=== PATIENT | male | born 1995 | race Hispanic/Latino ===

== ENCOUNTER 2025-06-11 12:17 | Emergency (ER) | payer OTHER ==
[~2025-06-11] VITALS: Ht 177.8 cm; Wt 120.2 kg
[~2025-06-11 12:17] MED LIST: AMOX-429 PO; LEVO500T2 PO; PRED5TAB PO
--- NOTE | 2025-06-11 12:27 | ERN ---
ED Note History of Present Illness Stated Complaint: RT LEG PAIN Chief Complaint: Lower Extremity Pain/Injury Time Seen by MD: 12:18 Dictation: PATIENT IS A 29-YEAR-OLD MALE HERE WITH HIS MOTHER WITH COMPLAINTS OF RIGHT LEG PAIN HE HAS HAD FOR THE LAST SEVEN MONTHS WORSE WHEN HE GETS UP IN THE MORNING HAS TO WALK. STATES HE HAS ALREADY BEEN TO HIS PRIMARY CARE DOCTOR, DR. HESS 3 TIMES AND WAS TOLD IT WAS A MUSCLE STRAIN AND TO STRETCH HIS LEG AND WAS GIVEN IBUPROFEN. HE STATES HE RAN OUT OF THE MEDICATIONS OR WHILE BACK IN HIS TAKEN ADVIL [id number]. STATES IT TAKES HIM 2-3 HOURS HER START WALKING IN THE MORNING BECAUSE IT LEG HURTS SO BAD NOW TODAY IT IS COOL TO TOUCH. HE DENIES CLAUDICATION. SAYS HE HAS NOT SEEN HIS PRIMARY CARE DOCTOR SINCE FEBRUARY 2025. DISTAL NEUROVASCULAR CMS INTACT BACK TO BOTH LOWER EXTREMITIES. NO CALF TENDERNESS Allergies: Coded Allergies: No Allergy Information Available (Verified Allergy, Unknown, 06/25/16) Home Meds Active Scripts Ibuprofen (Ibuprofen 800 mg Tab) 800 Mg Tab, 800 MG PO Q8H PRN for fever or pain, #30 TAB 0 Refills Prov:CRISTELA MI LAUNDRY BAG PUNCH OPERATOR 06/11/25 Prednisone (Prednisone) 5 Mg Tablet, 5 MG PO DAILYBKFST, #5 TAB Prov:NAJMA CROSS MD 06/30/16 Amoxicillin/Potassium Clav (Augmentin 875-125 Tablet) 1 Each Tablet, 1 EACH PO BIDMEALS, #15 TAB Prov:NAJMA CROSS MD 06/30/16 Levofloxacin (Levaquin) 500 Mg Tablet, 500 MG PO DAILY, #7 TAB Prov:NAJMA CROSS MD 06/30/16 Past Medical History Past Medical History: Other Additional Past Medical Hx: CHRONIC RLE PAIN Surgical History: None RN Note Reviewed/Agreed w/PFSH: Yes Review of System Dictation CONSTITUTIONAL: NEGATIVE EXCEPT FOR HPI HEAD/FACE: NEGATIVE EXCEPT FOR HPI EENT: NEGATIVE EXCEPT FOR HPI RESPIRATORY: NEGATIVE EXCEPT FOR HPI GASTROINTESTINAL/ABDOMINAL: NEGATIVE EXCEPT FOR HPI GENITOURINARY: NEGATIVE EXCEPT FOR HPI PAIN COOL TO TOUCH SEVEN MONTHS MUSCULOSKELETAL: NEGATIVE EXCEPT FOR HPI RIGHT LEG INTEGUMENTARY: NEGATIVE EXCEPT FOR HPI NEUROLOGICAL/PSYCH: NEGATIVE EXCEPT FOR HPI HEMATOLOGIC/LYMPHATIC: NEGATIVE EXCEPT FOR HPI ALL SYSTEMS NEGATIVE, EXCEPT NOTED ABOVE. 13 POINT REVIEW OF SYSTEMS ASSESSED AND ALL NEGATIVE EXCEPT FOR ABOVE. Initial Vital Sign VS Vital Signs Date Time Temp Pulse Resp B/P (MAP) Pulse Ox O2 Delivery O2 Flow Rate FiO2 06/11/25 12:18 98.2 74 16 141/103 99 Room Air 0 06/11/25 15:52 21 Physical Exam Dictation VITAL SIGNS REVIEWED GENERAL APPEARANCE: ALERT, ORIENTED X 3, NO ACUTE DISTRESS, WELL DEVELOPED, NOURISHED. ANXIOUS/OBESE MOTHER AT BEDSIDE HEAD AND FACE: NON-TRAUMATIC. EYES: PERRL, PINK CONJUNCTIVAS, EYELID NO TRAUMA, ANTERIOR CHAMBER WITH ARCUS SENILIS. EARS: PINNAS INTACT AND NO SIGNS OF TRAUMA OR ERYTHEMA EAR CANALS CLEAR AND NO DISCHARGE TM NO ERYTHEMA NOSE: NO DISCHARGE, NO BLEEDING. OROPHARYNX: MOUTH NORMAL, TONGUE PINK, PHARYNX CLEAR,NO ERYTHEMA, TONSILS NO EXUDATES, NO ABSCESSES NOTED, MUCOUS MEMBRANE MOIST NECK: SUPPLE, NON-TENDER, NO THYROMEGALY, NO MASSES, NO JVD, NO BRUITS BREAST:DEFERRED CHEST:NO TENDERNESS, NO CREPITUS, NO PARADOXICAL MOVEMENT, NO RETRACTIONS LUNGS:CLEAR, WELL-VENTILATED, SYMMETRIC, NO RALES, NO WHEEZING, NO RHONCHI, NO STRIDOR, GOOD BREATH SOUNDS BILATERALLY HEART: REGULAR RATE, REGULAR RHYTHM, NO MURMUR, NO GALLOPS VASCULAR: NO PERIPHERAL EDEMA, ABDOMEN: SOFT, POSITIVE BOWEL SOUNDS, NONDISTENDED, NO GUARDING, NONTENDER, NO REBOUND, NO MASSES NO HEPATOMEGALY, NO SPLENOMEGALY, NO EVANS'S SIGN, NO HERNIAS. RECTAL: DEFERRED GENITAL: DEFERRED NEUROLOGICAL: NORMAL SPEECH, MOTOR FUNCTION INTACT, SENSORY FUNCTION INTACT MUSCULOSKELETAL: NECK NONTENDER, FULL RANGE OF MOTION, BACK NONTENDER, FULL RANGE OF MOTION, EXTREMITIES: NONTENDER, FULL RANGE OF MOTION SKIN: COLOR PINK, DRY, NO TURGOR, NO RASH, NO LACERATIONS, NO ABRASIONS, NO CONTUSIONS. DISTAL NEUROVASCULAR CMS INTACT TO BILATERAL LOWER EXTREMITIES. CAP REFILL LESS THAN 2 SECONDS BILATERALLY PULSES PALPABLE LEG IS WARM TO TOUCH BILATERALLY LYMPHATIC: DEFERRED Results (Laboratory/Radiology) Laboratory/Radiology Laboratory Tests Test 06/11/25 13:19 White Blood Count 12.7 K/uL (4.8-10.8) H Red Blood Count 4.97 MIL/uL (4.50-6.20) Hemoglobin 15.5 g/dL (14.0-18.0) Hematocrit 43.5 % (42-54) Mean Corpuscular Volume 87.5 fL (79-99) Mean Corpuscular Hemoglobin 31.2 pg (27.0-33.0) Mean Corpuscular Hemoglobin Concent 35.6 g/dL (32.0-36.0) Red Cell Distribution Width 12.3 % (11.0-15.5) Platelet Count 447 K/uL (130-400) H Mean Platelet Volume 9.2 fL (7.5-10.5) Immature Granulocyte % (Auto) 0.4 % (0-1) Neutrophils (%) (Auto) 82.3 % (40.0-77.0) H Lymphocytes (%) (Auto) 13.0 % (21.0-51.0) L Monocytes (%) (Auto) 3.9 % (3.0-13.0) Eosinophils (%) (Auto) 0.2 % (0.0-8.0) Basophils (%) (Auto) 0.2 % (0.0-5.0) Neutrophils # (Auto) 10.4 K/uL (1.8-7.7) H Lymphocytes # (Auto) 1.7 K/uL (1.0-4.8) Monocytes # (Auto) 0.5 K/uL (0.1-1.0) Eosinophils # (Auto) 0.02 K/uL (0.00-0.70) Basophils # (Auto) 0.03 K/uL (0.00-0.20) Absolute Immature Granulocyte (auto 0.05 K/uL (0-1) Nucleated Red Blood Cells 0.0 % (0.0-0.19) Sodium Level 137 mmol/L (136-145) Potassium Level 3.9 mmol/L (3.5-5.1) Chloride Level 100 mmol/L (101-111) L Carbon Dioxide Level 28 mmol/L (21-32) Blood Urea Nitrogen 11 mg/dL (7-18) Creatinine 0.8 mg/dL (0.5-1.3) Glomerular Filtration Rate Calc 123 mL/min (>90) Random Glucose 118 mg/dL (70-105) H Total Calcium 9.1 mg/dL (8.5-10.1) 1305/ARTERIAL DOPPLER RIGHT LEG DEMONSTRATES TRIPHASIC FLOW THROUGHOUT. Labs Reviewed?: Yes ED Course ED Course Orders Procedure Category Date Status Time Us Arterial Unila Low US 06/11/25 Resulted Ext Dupl 12:24 Cbc With Differential LAB 06/11/25 Complete 12:24 Basic Metabolic Panel LAB 06/11/25 Complete 12:24 Vital Signs Date Time Temp Pulse Resp B/P (MAP) Pulse Ox O2 Delivery O2 Flow Rate FiO2 06/11/25 15:52 97.9 80 16 152/96 100 Room Air* 0 21 06/11/25 12:18 98.2 74 16 141/103 99 Room Air 0 1540/PATIENT CAME BACK TO THE EMERGENCY ROOM HAS BEEN OUTSIDE WALKING WITH HIS MOTHER. I EXPLAINED IS ARTERIAL ULTRASOUND WAS TRIPHASIC FLOW FROM HIS LEG TO HIS FOOT. HE HAD HYPERGLYCEMIA AND NEED TO SEE HIS DOCTOR FOR RULING OUT DIABETES. ALL QUESTIONS ANSWERED Medical Decision Making MDM MDM: DIFFERENTIAL DIAGNOSIS: ELECTROLYTE IMBALANCE/DEHYDRATION/UNCONTROLLED DIABETES/ISCHEMIA/PID RATIONALE: TESTS CONSIDERED AND ORDERED SECONDARY TO SHARED DECISION MAKING INCLUDE: LABS/ULTRASOUND PREVIOUS OUTSIDE RECORDS REVIEWED: OLD ER VISITS. RISK OF COMPLICATION AND/OR MORBIDITY OR MORTALITY OF PATIENT MANAGEMENT: NONE MEDICATIONS-PER MEDICATION RECONCILIATION NEED FOR HOSPITALIZATION: PATIENT DOES NOT MEET CRITERIA FOR HOSPITALIZATION. NO NEED FOR EMERGENCY MAJOR/MINOR SURGERY: NO THERE ARE NO SOCIAL CONCERNS WITH THIS PATIENT. PRESCRIPTION DRUG MANAGEMENT IBUPROFEN PRESCRIPTIONS WILL INCLUDE SYMPTOMATIC CARE PATIENT'S PRIOR EXTERNAL MEDICAL RECORDS FROM OTHER ER VISITS WERE REVIEWED BY ME INDICATED. PRIOR TESTING AND RESULTS FROM PREVIOUS VISITS WERE REVIEWED. PRIOR TESTS WERE TAKEN INTO ACCOUNT WITH MEDICAL DECISION MAKING AND RESOURCE UTILIZATION, INDEPENDENT HISTORIAN/HISTORIANS WERE USED TO OBTAIN COMPLETE MEDICAL HISTORY. I INDEPENDENTLY INTERPRETED THE TEST THAT WERE PERFORMED, RESULTS WERE REVIEWED BY ME AND CONSIDERED FINDINGS ON RADIOLOGY IF ORDERED. MEDICAL MANAGEMENT AND EXAMINATION INTERPRETATION DISCUSSIONS WERE HAD BY ME WITH OTHER QUALIFIED HEALTHCARE PROFESSIONALS INDICATED FOR THE PATIENT'S CARE.. DX & DISP Disposition: Discharge Departure Impression: Primary Impression: Chronic pain of right lower extremity Additional Impressions: Leukocytosis, Hyperglycemia Condition: Stable Scripts Ibuprofen (Ibuprofen 800 mg Tab) 800 Mg Tab 800 MG PO Q8H PRN for fever or pain, #30 TAB 0 Refills Prov: SHMUELCRISTELA Amber LAUNDRY BAG PUNCH OPERATOR 06/11/25 Additional Instructions: FOLLOW-UP WITH PRIMARY CARE PROVIDER IN 1 TO 2 DAYS. TAKE MEDICATIONS DIRECTED HERE IN THE EMERGENCY ROOM. OKAY TO CONTINUE HOME MEDICATIONS UNLESS OTHERWISE DISCUSSED DURING YOUR VISIT IN THE EMERGENCY ROOM TODAY. RETURN TO YOUR NEAREST EMERGENCY ROOM IF SYMPTOMS WORSEN OR IF THERE IS NO IMPROVEMENT. CALL 911 IF YOU NEED IMMEDIATE ASSISTANCE. TAKE TYLENOL OR MOTRIN [id number] NEEDED AND IF NO CONTRAINDICATIONS ARE PRESENT. INCREASE ORAL HYDRATION. A WOUND CULTURE OR URINE CULTURE WAS ORDERED HERE IN THE EMERGENCY ROOM DEPARTMENT PLEASE FOLLOW-UP WITH PRIMARY CARE PROVIDER AND ADVISE THEM TO GET REPEAT PORTS FROM OUR FACILITY. IF YOU HAD ANY JOSE ANTONIO WRAP/SPLINTS THAT WERE APPLIED HERE, PLEASE DO NOT REMOVE THEM UNTIL YOU SEE YOUR PRIMARY CARE OR SPECIALTY. SEE YOUR PRIMARY CARE DOCTOR FOR FOLLOW UP IN THE NEXT 1-2 DAYS FOR YOUR CHRONIC RIGHT LEG PAIN. ALSO TAKE HIM TO RESULTS OF YOUR ARTERIAL STUDY AND SEE HIM FOR CONTROL OF YOUR PAIN WELL RULING OUT DIABETES. NO WORK UNTIL 06/12/2025 Referrals: SELF,REFERRAL (PCP) Time of Disposition: 15:14 I have reviewed the case, and I agree with, Diagnosis and Plan CRISTELA MIP Jun 11, 2025 12:27 SAMANTHA MCGARRY DO Jun 11, 2025 17:45
[2025-06-11 13:25] LABS: IMMATURE GRANULOCYTE ABSOLUTE 0.05 K/uL (0-1); NUCLEATED RED BLOOD CELLS 0.0 % (0.0-0.19); PLATELET COUNT (AUTO) 447 K/uL (130-400); RED BLOOD CELL COUNT(AUTO) 4.97 MIL/uL (4.50-6.20); RED CELL DISTRIBUTION WIDTH 12.3 % (11.0-15.5); WHITE BLOOD COUNT (AUTO) 12.7 K/uL (4.8-10.8)
[2025-06-11 13:41] LABS: CREATININE 0.8 mg/dL (0.5-1.3); GLOMERULAR FILTR. RATE CALC 123.0 mL/min (>90); GLUCOSE,RANDOM 118.0 mg/dL (70-105); SODIUM SERUM 137.0 mmol/L (136-145); UREA NITROGEN, BLOOD 11.0 mg/dL (7-18)
--- NOTE | 2025-06-11 13:42 | HMCIMG ---
EXAM: US Duplex right Lower Extremity Arteries. CLINICAL HISTORY: RIGHT LEG COOL TO TOUCH/CLAUDICATION TECHNIQUE: Real-time ultrasound scan of the arteries of the right lower extremity with 2-D carter scale, color Doppler flow and spectral waveform analysis. COMPARISON: None provided. FINDINGS: COMMON FEMORAL ARTERY: Velocity: 109 cm/s, triphasic waveform. No occlusion or significant stenosis. SUPERFICIAL FEMORAL ARTERY: Velocity: 104 cm/s, triphasic waveform. No occlusion or significant stenosis. POPLITEAL ARTERY DISTAL: Velocity: 56 cm/s, triphasic waveform. No occlusion or significant stenosis. POSTERIOR TIBIAL ARTERY: Velocity: 78 cm/s, triphasic waveform. No occlusion or significant stenosis. ANTERIOR TIBIAL ARTERY: Velocity: 29 cm/s, triphasic waveform. No occlusion or significant stenosis. DORSALIS PEDIS ARTERY: Velocity: 29 cm/s, triphasic waveform. IMPRESSION: 1. No acute arterial abnormality in the right lower extremity. /[place]
[2025-06-11] MEDS ORDERED: IBUP-2077 PO (15:43)
[2025-06-11 15:52] VITALS: BP 152/96; PULSE 80; RESP 16; TEMP 97.9; O2SAT 100
== END 2025-06-11 15:57 | disposition home or self-care (01) ==
LOC: EDH 12:17
DX: G89.29 Other chronic pain (principal); M79.604 Pain in right leg; D72.829 Elevated white blood cell count, unspecified; R73.9 Hyperglycemia, unspecified; E66.9 Obesity, unspecified; Z68.34 Body mass index [BMI] 34.0-34.9, adult
CPT/HCPCS: 36415; 80048; 85025; 93926; 99284